=== PATIENT | male | born 1980 | race Two or more races ===

== ENCOUNTER 2024-02-26 13:10 | Emergency (ER) | payer BC, MEDICAID ==
[~2024-02-26] VITALS: Ht 175.3 cm; Wt 83.8 kg
[2024-02-26 16:17] VITALS: TEMP 98
[2024-02-26] MEDS ORDERED: NABU-72 PO (16:23)
[2024-02-26 16:42] VITALS: BP 120/67; PULSE 61; RESP 16; O2SAT 98
== END 2024-02-26 16:36 | disposition home or self-care (01) ==
LOC: ER 13:10
DX: M25.571 Pain in right ankle and joints of right foot (principal)
CPT/HCPCS: 29515; 73610; 73630